=== PATIENT | female | born 1960 | race Caucasian/White ===

== ENCOUNTER 2017-01-25 14:15 | Emergency (ER) | payer MEDICARE, OTHER ==
[~2017-01-25] VITALS: Ht 160 cm; Wt 80.0 kg
[~2017-01-25 14:15] MED LIST: FES300 PO; FURO20TA PO; INSU100C4 SUBQ; INSU100I SUBQ; LAS20I IV; LISI40TA13 PO; METO-274 PO; METO25T PO; MICO130A6 TP; POTA20TA35 PO; Potassium
[2017-01-25 14:27] VITALS: BP 105/74; PULSE 72; RESP 16; O2SAT 97
[2017-01-25] MEDS ORDERED: FUR20 PO (14:34)
[2017-01-25] MEDS ORDERED: GABA-500 PO (14:34)
[2017-01-25] MEDS ORDERED: INSU100I13 SUBQ (14:34)
[2017-01-25] MEDS ORDERED: SPIR25TA3 PO (14:34)
--- NOTE | 2017-01-25 15:11 | ED.REPORT ---
HPI-Eye Problem Date of Service Jan 25, 2017 ED Provider: Shayan Matthew MD The patient is a 56 year old female with history of diabetic retinopathy and glaucoma, who presents to the emergency department complaining of right eye redness, pain, and swelling that began a few days ago. The patient fell off of the porch a few days ago, hitting her right knee and the right side of her face around her eye. She believes she hit her face on cement. She was not evaluated after the fall. Since the fall she has noticed right eye pain, redness, and vision loss. She states that she can see light but nothing else. The patient is legally blind in her left eye and her right eye vision was previously measured at 2400. She is normally able to see pretty well out her right eye and is able to read large letters. Nursing Notes Stated Complaint: R EYE BLOODY, BLURRY VISON Chief Complaint: Multiple Trauma/Fall Nursing Notes Reviewed: Yes Allergies: Coded Allergies: No Known Allergies (Unverified Allergy, Unknown, 01/25/17) Scheduled Ferrous Sulfate-Expunged Drug, Do Not Renew! (Feosol-Expunged Drug, Do Not Renew !) 325 Mg Tablet PO NEED SIG Furosemide (Furosemide) 20 Mg Tab 40 MG PO DAILY Gabapentin (Gabapentin) Unknown Strength Capsule Unknown Dose PO DAILY Insulin ASPART-Expunged Drug, Do Not Renew! (Novolog-Expunged Drug, Do Not Renew !) 3 Ml Syringe 5 UNIT SUBQ TID COVERAGE Insulin Glargine (Lantus U100 Solostar Insulin Pen) 100 Unit/1 Ml Insuln.pen 10 UNIT SUBQ HS Lisinopril-Expunged Drug, Do Not Renew! (Lisinopril-Expunged Drug, Do Not Renew! ) 40 Mg Tablet 40 MG PO DAILY Metoprolol Suc-Expunged Drug, Do Not Renew! (Metoprolol Suc-Expunged Drug, Do Not Renew!) 100 Mg Tab.er.24h 100 MG PO BID Spironolactone (Spironolactone) 25 Mg Tablet 25 MG PO BID General Time Seen by MD: 15:10 Chief Complaint Right eye affected Hx Obtained From: Patient, Daughter Arrived By: Walk-in Sudden in Onset?: No Onset Occurred: 3 days ago Symptom Duration: Since onset Progression Since Onset: Constant, Gradually worsening Caused by: Trauma (glf) Location: : Eye right Quality: Painful Severity: Current: Mild Severity: Maximum: Moderate Recent Healthcare: No recent doctor visit, No recent hospitalization Similar Sx Previous: No Past Medical History Past Medical History Diabetes mellitus Diabetic retinopathy Glaucoma Family History Noncontributory Social History Other Social History: Good social support, , Local resident Ambulatory Status Independent Review of Systems Eyes: Reports: Blurred right, Eye pain right, Redness right, Visual loss right Complete sys rev & neg: except as marked. Physical Exam Initial Vital Signs Vital Signs (First) Date Time Temp Pulse Resp B/P Pulse Ox O2 Delivery O2 Flow Rate FiO2 01/25/17 14:27 36.3 72 16 105/74 97 Room Air Initial VS: Reviewed Neck: Supple, Non-tender, Full range of motion Respiratory: Breath sounds normal, Clear to auscultation, No respiratory distress Cardiovascular: Regular rate & rhythm, Heart sounds normal, Intact distal pulses Abdomen / GI: Soft, Non-tender, No guarding, No rebound, No distention Lymphatic: No lymphadenopathy Extremities: Vascular intact, Neuro intact, No swelling, No tenderness Skin: Warm, Dry, No cyanosis Neurologic: Alert, Oriented, Nonfocal Psychiatric: Mood/affect normal, Behavior normal, Normal thought content Head / Eyes: Normocephalic Left eye: She has an enlarged irregularly shaped pupil and there is some obvious glaucomatous change present. Right eye: She has a large subconjunctival hemorrhage there is also some chronic corneal scarring with on area of fluoresceincuptake suggestive of possible corneal ulceration. Her right pupil is 4 mm and reactive to light. She is unable to read any letters on the Snellen chart with either eye. See slit lamp exam below for more detail. There is no trauma, ecchymosis, or palpable deformity to the scalp. General/Constitutional: Awake, Alert ENT: Atraumatic, Airway patent, No sinus tenderness Mouth: Positive: Mucous membranes dry No intraoral or dental injury. Back: No midline vertebral tend Procedures Slit Lamp Exam No corneal abrasions. No foreign bodies present. Cell and flare in the anterior chamber. Time: 15:55 Procedure Performed by: ED physician Which Eye: Right Eyelid / Conjunctiva / Sclera: Eyelid(s) normal Cornea/Ant Chamber/Iris/Lens: Corneal ulcer present Re-Eval/Medical Decision Med Decision/Clinical Course Patient is a 56-year-old female with extensive history of eye disease including diabetic retinopathy and glaucoma with complete blindness in her left eye and significant baseline vision loss in her right eye presenting to the emergency department with acute vision loss after a ground-level fall. Examination as above. Given the patient's acute vision loss in the setting of blindness in her left eye I feel that she requires further evaluation by an pin puller. Spoke with Dr. Walls who will come and see the patient in the emergency department. The patient has multiple eye problems however at this time per his evaluation there is no evidence of retinal tear/detachment. No evidence of hypopyon. Per our discussion it appears that most of the patient's vision loss is likely irreversible. After evaluating the patient he recommends discharge with antibiotic eye drops and followup with ophthalmology. He will arrange for follow-[place] with the [place] [facility] and she will receive a call tomorrow to assure that follow-up happens. At this time, I see no indication to obtain neuro imaging studies. Patient is nontoxic appearing and hemodynamically stable. Please see Dr. Walls's note extensive ophthalmologic evaluation conducted today in the emergency department. Prior to discharge I had a long conversation with the patient the importance of following up in eye clinic tomorrow as instructed. From what I can gather the patient has had very poor follow-up in the past and I discussed with her the importance of doing everything she can to maintain what vision she has left in her right eye. She is assures us she will do this. Source of Hx: Old records, Family Re-Evaluation/Progress : Time of Eval: 17:38 Re-Evaluation/Progress Note: Discussed plan for discharge. All questions were addressed. Consultation #1: Referral / Consult Name: VANNA WALLS MD Consulted With: Awning Erector Call Returned at: 16:23 General Lot Attendant: Will see patient, Agrees with eval, Agrees with plan Consultation #2: Consulted With: Awning Erector Call Returned at: 19:15 Note: [facility] after the patient was departed. They will contact her tonight to make sure she is seen tomorrow morning. Counseled Regarding: Diagnosis, Need for follow-up, When/why to return to ED Discharge & Departure Primary Impression: Right eye injury Encounter type: initial encounter Qualified Code: S05.91XA - Unspecified injury of right eye and orbit, initial encounter Additional Impressions: Corneal ulcer Laterality: right Qualified Code: H16.001 - Unspecified corneal ulcer, right eye Blindness of left eye History of glaucoma History of diabetic retinopathy Noncompliance with diabetes treatment Disposition: Home Discharge Condition All VS Reviewed: Yes Condition: Stable Additional Instructions: Thank you for seeking care at the emergency room. Our primary goal today in the ED was to evaluate you for any life-threatening conditions. Your evaluation was reassuring. You will be discharged with a prescription for antibiotic eye drops. Use the drops every hour while awake over the next few days and then decrease this to 4 times daily. It is very important that you followup with an pin puller in the next few days for re-evaluation. Call [facility] at [phone] tomorrow to schedule an appointment. If you cannot get followup please return to the emergency department. You should return to the ED immediately if you develop new or worsening visual changes, increased pain, fevers, vomiting, or any other concerning signs or symptoms. Thank you for letting us partake in your care today. Referrals: Luly Reyna MD (PCP) Scribe Attestation Portions of this note were transcribed by Deya Andrade. I, Dr. Matthew personally performed the history, physical exam and medical decision-making; I reviewed and confirmed the accuracy of the information in the transcribed note. Signed by: Jada Tirado, 01/25/2017 at 1916. copies to: Luly Reyna MD, Beck O MD Jan 25, 2017 15:11 Deya Andrade Jan 25, 2017 15:34
[2017-01-25] MEDS ORDERED: Tetracaine 0.5% 4 mL Ophthalmic Solution BOTH_EYES ONE (15:15)
[2017-01-25] MEDS ORDERED: Fluorescein 0.6 mg Ophthalmic Strip BOTH_EYES ONE (15:15)
[2017-01-25] MEDS ORDERED: Cyclopentolate 2% 2 mL Ophthalmic Solution RIGHT_EYE ONE (17:30)
[2017-01-25 18:33] VITALS: BP 98/74; PULSE 63; RESP 16; O2SAT 98
[2017-04-02] MEDS ORDERED: FERR-83 PO (16:14)
[2017-04-02] MEDS ORDERED: SODI650T PO (16:14)
[2017-04-02] MEDS ORDERED: METO-274 PO (16:14)
[2017-04-02] MEDS ORDERED: POTA99TA21 PO (16:14)
[2017-04-02] MEDS ORDERED: GABA300C PO (16:14)
[2017-04-02] MEDS ORDERED: CALC0.257 PO (16:14)
[2017-04-02] MEDS ORDERED: INSU100C8 SUBQ (16:14)
[2017-04-02] MEDS ORDERED: INSU100I (16:14)
== END 2017-01-25 18:34 | disposition home or self-care (01) ==
LOC: SED 14:15
DX: S05.91XA Unspecified injury of right eye and orbit, initial encounter (principal); H16.001 Unspecified corneal ulcer, right eye; H54.42 Blindness, left eye, normal vision right eye; H11.31 Conjunctival hemorrhage, right eye; W17.89XA Other fall from one level to another, initial encounter; Y93.89 Activity, other specified; Y99.8 Other external cause status; Y92.018 Other place in single-family (private) house as the place of occurrence of the external cause; E11.319 Type 2 diabetes mellitus with unspecified diabetic retinopathy without macular edema; Z86.69 Personal history of other diseases of the nervous system and sense organs; Z91.19 Patient's noncompliance with other medical treatment and regimen; Z79.4 Long term (current) use of insulin

== ENCOUNTER 2017-04-06 09:53 | Day surgery (SDC) | payer MEDICARE ==
[~2017-04-06] VITALS: Ht 160 cm; Wt 90.4 kg
[2017-04-06] VITALS (9 sets, daily range): BP systolic 149–190; BP diastolic 67–83; PULSE 66–77; RESP 14–17; O2SAT 94–98
[~2017-04-06 09:53] MED LIST changes: +0.9% Sodium Chloride 500 ML IV ONE; +CALC0.257 PO; +CeFAZolin Inj 1 GM in IV Premix 1 EACH IV ONE; +FERR-83 PO; -FES300 PO; +FUR20 PO; -FURO20TA PO; +GABA300C PO; -INSU100C4 SUBQ; +INSU100C8 SUBQ; +INSU100I; -INSU100I SUBQ; +INSU100I13 SUBQ; -LAS20I IV; -LISI40TA13 PO; -METO25T PO; -MICO130A6 TP; -POTA20TA35 PO; +POTA99TA21 PO; -Potassium; +SODI650T PO
[2017-04-06] MEDS ORDERED: Propofol 10,000 mCg/mL 20 mL Inj ONE (09:54)
[2017-04-06] MEDS ORDERED: Ketamine 10 mg/mL 20 mL Inj ONE (09:54)
[2017-04-06] MEDS ORDERED: Dexamethasone 4 mg/mL Inj ONE (09:54)
[2017-04-06] MEDS ORDERED: Ondansetron 2 mg/mL 2 mL Inj ONE (09:54)
[2017-04-06] MEDS ORDERED: fentaNYL-PF 50 mCg/mL 2 mL Inj ONE (09:54)
--- NOTE | 2017-04-06 10:21 | PCM.HPANE ---
Patient Data Surgeon Admitting Provider: Attending Provider:Jemima Cabrera MD Primary Care Physician:Luly Reyna MD Other Provider:Jacque Davisingham Anesthesia Reason for Visit Chronic Renal Failure Ht/WT & BMI Height (Feet): 5 Height (Inches): 3 Weight (Kilograms): 93.168 Body Mass Index 36.00 Allergies Coded Allergies: No Known Allergies (Verified Allergy, Unknown, 04/02/17) Past Anesthesia History Anesthesia History: Denies:: Anesthesia Reactions, Malignant Hyperthermia Diabetes History Hx Diabetes?: Yes Type of Diabetes: Type II Glycemic Control: Insulin Dependent MRSA MRSA: No Medications Hypertension Medication: Yes (LASIX) Home Meds Incl Beta Cody: Yes (METOPROLOL) Reported Medications Sodium Bicarbonate 650 Mg Ogchel925 Mg PO BID 04/02/17 Potassium Gluconate (Potassium)99 Mg Aqhhth08 Mg PO DIRECTED PRN HEALTH PLEASE VERIFY DOSAGE & FREQUENCY 04/02/17 Calcitriol (Rocaltrol)0.25 Mcg Capsule0.25 Mcg PO 04/02/17 Gabapentin (Neurontin)300 Mg Cwtbrll929 Mg PO DAILY 30 Days Ref 0 04/02/17 Ferrous Sulfate 325 Mg Wwgfpr721 Mg PO BID 30 Days Ref 0 04/02/17 Insulin Aspart (NovoLOG U100 Insulin Vial)100 U/Ml U1 Unit SUBQ TIDAC #1 VIAL Ref 0 sliding scale 04/02/17 Insulin Aspart (NovoLOG U-100 Pen)100 Unit/Ml Insuln.pen 04/02/17 Metoprolol Succinate ER 100 Mg Tab.er.68h780 Mg PO BID Ref 0 04/02/17 Insulin Glargine (Lantus U100 Solostar Insulin Pen)100 Unit/1 Ml Insuln.pen10 Unit SUBQ HS #1 PENINJ Ref 0 01/25/17 Furosemide 20 Mg Tab40 Mg PO DAILY 01/25/17 Discontinued Reported Medications Gabapentin Unknown Strength CapsuleUnknown Dose PO DAILY 01/25/17 Spironolactone 25 Mg Zmpwqs72 Mg PO BID 01/25/17 Metoprolol Suc-Expunged Drug, Do Not Renew! 100 Mg Tab.er.47f551 Mg PO BID 11/30/13 Ferrous Sulfate-Expunged Drug, Do Not Renew! (Feosol-Expunged Drug, Do Not Renew !)325 Mg Tablet Po Need Sig 11/30/13 Lisinopril-Expunged Drug, Do Not Renew! 40 Mg Ncxikp43 Mg PO DAILY Ref 0 11/30/13 Insulin ASPART-Expunged Drug, Do Not Renew! (Novolog-Expunged Drug, Do Not Renew !)3 Ml Syringe5 Unit SUBQ TID #300 UNIT COVERAGE 12/30/12 History History of ENT Problems?: Yes HEENT History: Positive for:: Cataracts (beginning HX MACULAR EDEMA S/ P EYE SURGERY) Glaucoma (LEGALLY BLIND/DIABETIC RETINOPATHY) Denies:: Dysphagia Sinus Problem Denture Type: None Teeth Condition: Within Normal Limits Hx of Heart Problems?: Yes Cardiovascular History: Positive for:: Congestive Heart Failure Edema (legs past 3 weeks) Hypertension Irregular Heartbeat (a flutter today in ER, back to ST) Denies:: Cardiac Surgery Chest Pain Heart Murmur Pacemaker Thrombophlebitis Hx of Respiratory Problem?: Yes Respiratory History: Positive for:: Dyspnea (ALVAREZ) Tuberculosis (tested positive when younger but r/o cxr-now not positive) Denies:: Asthma COPD Chest Surgery (HX LUNG NODULE 2012) Emphysema Hemoptysis Pneumonia Use of C-PAP Machine (SNORES) Hx Neurologic Problems?: Yes Neurological History: Positive for:: Parkinson's Disease Denies:: Alzheimer's Disease CVA Dementia Dizziness Headaches Seizures Other Neurological Pertinent: DIABETIC NEUROPATHY Hx of GI Problems?: No Hx of Problems?: Yes Genitourinary History: Positive for:: Kidney Stones (x 2, remote past) Urinary Tract Infection (HX OF) Female Hx: Denies:: Currently Endometriosis Pelvic Inflammatory Problems with Breasts? Skin History: Denies:: History Skin Disorders? Pressure Ulcers Hx Musculoskeletal Problems?: No Musculoskeletal History: Denies:: Back Injury Joint Replacement Musculoskeletal Trauma Hx of Psycho/Social Problems?: No Psycho Social History: Denies:: Anxiety Bipolar Disorder Hx Depression Suicide Attempt Hx Surgeries?: Yes (S/P EYE PROCEDURE) Hx Any Other Health Problems?: Yes Other History: Positive for:: Hospitalization (birthing) Denies:: Cancer Endocrine Disease Thyroid Disease History Blood Transfusions: Denies:: Blood Transfuse Reaction Blood Transfusions Hx Diabetes: Yes Hx Alcohol Use: Yes (RARE)Hx Substance Use: Yes (REMOTE HX OF COCAINE & METH) Smoking Status: Never Smoker Have You Smoked inLast 12 mo: No Stop/Bang S-Snoring: Do You Snore Loudly: Yes T-Tired: feel tired, fatigued: No O-Obsered: Observed not breath: No P-Blood Pressure: treated: Yes B- Body Mass Index > 35 kg/m2: Yes A- Age over 50: Yes N- Neck Large Circumference: No G- Gender Male: No PRITI Total Score: 4 PRITI Risk Assessment: High Risk, =/>3 Yes Risk Assessment Category Category 1A: Patient has history of documented sleep apnea, and HAS NOT received any narcotic, sedative or anesthesia administration during this stay. Category 1B: Patient has history of documented sleep apnea, and HAS received any narcotic , sedative or anesthesia administration during this stay Category 2: Patient has SUSPECTED Obstructive Sleep Apnea, and HAS received any narcotic , sedative or anesthesia administration during this stay. Category 3: Patient has SUSPECTED Obstructive Sleep Apnea and HAS NOT received narcotic, sedative or anesthesia administration during this stay. Category 4: Outpatient in Procedural Areas with known sleep apnea or who screen positive for High Risk via the STOP/BANG questionnaire. Exam Exam General Appearance: Alert, Oriented X3, Cooperative, No Acute Distress HEENT/AIRWAY: MP 2 Lungs: Clear to Auscultation, Normal Air Movement Heart: Exam Unremarkable, Regular Rate/Rhythm, No Murmurs/Rubs/Gallops Meds/Labs/Diagnostics Admission Meds Current Medications Sodium Chloride (Normal Saline) 500 ml @ 10 mls/hr Q24H ONCE IV Last administered on 04/06/17t 09:56; Start 04/06/17 at 05:00; Stop 04/07/17 at 04:59 Plan Impression Patient chart reviewed, patient interviewed and anesthestic plan with risks, benefits, and alternatives discussed, and informed consent obtained. NPO per Anesth. Guidelines: Yes ASA Physical Status: ASA3 Severe Disease Anesthetic Plan: GA Bene/Risks/Altern/Consents: Yes HP Complete Prior to Induction: Yes Davis Motley MD April 06, 2017 10:21
[2017-04-06] MEDS ORDERED: Bupivacaine-MPF 0.5% 30 mL Inj INFILTRATE ONE (13:30)
[2017-04-06] MEDS ORDERED: Lidocaine 1% 50 mL Inj INFILTRATE ONE (13:30)
[2017-04-06] MEDS ORDERED: Heparin 1,000 Unit/mL 10 mL Inj IRRIGATION ONE (13:31)
[2017-04-06] MEDS ORDERED: Lactated Ringer's 1,000 ML IV SCH (13:32)
[2017-04-06] MEDS ORDERED: Lactated Ringer's 500 ML IV PRN (13:32)
[2017-04-06] MEDS ORDERED: EPHEDrine Sulfate 50 mg/mL Inj IVPUSH PRN (13:35)
[2017-04-06] MEDS ORDERED: Ondansetron 2 mg/mL 2 mL Inj IVPUSH PRN (13:35)
[2017-04-06] MEDS ORDERED: Atropine 0.4 mg/mL Inj IVPUSH PRN (13:35)
[2017-04-06] MEDS ORDERED: Dexamethasone 4 mg/mL Inj IVPUSH PRN (13:35)
[2017-04-06] MEDS ORDERED: Phenylephrine 10,000 mCg/mL Inj IVPUSH PRN (13:35)
[2017-04-06] MEDS ORDERED: fentaNYL-PF 50 mCg/mL 2 mL Inj IVPUSH PRN (13:35)
[2017-04-06] MEDS ORDERED: HYDROmorphone 1 mg/mL Inj IVPUSH PRN (13:35)
[2017-04-06] MEDS ORDERED: MetoCLOpramide 5 mg/mL 2 mL Inj IVPUSH PRN (13:35)
[2017-04-06] MEDS ORDERED: 0.9% Sodium Chloride 500 ML IV ONE (16:11)
[2017-04-06] MEDS ORDERED: oxyCODONE-Acetamin 5-325 mg Tablet PO PRN (16:20)
--- NOTE | 2017-04-06 16:25 | PCM.ANEP1 ---
Post Anesthesia PACU Phase 1 Assessment Vital Signs Vital Signs Date Time Temp Pulse Resp B/P Pulse Ox O2 Delivery O2 Flow Rate FiO2 04/06/17 10:22 36.5 67 16 190/83 97 Room Air Anesthetic Administered: GA Level of Alertness: Awake, talking DACOSTA's with Equal Strength: Yes Pain: No Nausea or Vomiting: No CV Function & Hydration Stable: Yes Airway Device: Oralpharangeal Airway Oxygen Delivery: Simple Mask Lungs: Clear to Auscultation, Normal Air Movement Dermatome Level: Full Sensation PACU Phase 2 Assessment Complications: No Follow up Care: N/A Patient Instructions Provided: Yes Davis Motley MD April 06, 2017 16:25
--- NOTE | 2017-04-06 16:37 | OP ---
[address] [address] OPERATIVE REPORT PATIENT: SHERWIN WEBB : 1960 MR#: [id number] ADMIT: 04/06/2017 JOB ID: [id number] DATE OF SURGERY: 04/06/2017 PREOPERATIVE DIAGNOSIS(ES): Stage 4 chronic kidney disease. POSTOPERATIVE DIAGNOSIS(ES): Stage 4 chronic kidney disease. PROCEDURE PERFORMED: Right brachiocephalic arteriovenous fistula. SURGEON: Jemima Cabrera MD ASSISTANTS: Randall Linda MD; SIMIN Beltrán HISTORY OF PRESENT ILLNESS: This is a 56-year-old woman with progressively worsening chronic kidney disease. She was not yet on dialysis, and her manager pathology requested AV fistula placement prior to the need for dialysis. FINDINGS: The right wrist was explored in an attempt to create a Jeremy fistula, however, the vein was completely inadequate. Therefore, the operation proceeded proximally and a brachiocephalic fistula was successfully created. DESCRIPTION OF PROCEDURE: Patient was brought to the operating room and placed in supine position. Moderate anesthesia was initially induced; however, later in the procedure was converted to LMA. The operative field was prepped and draped in sterile fashion. Antibiotics were infused. A warming blanket and SCDs were placed. A preprocedural pause was performed to confirm the correct patient, procedure, site, and side. The patient had been consented to Jeremy fistula with the possibility of a more proximal fistula if Jeremy could not be accomplished. Therefore, a 3cm longitudinal incision was made just lateral to the radial artery. The artery was identified and the cephalic vein was identified and dissected, which was found to be inadequate for fistula creation. This was closed with three interrupted 3-0 Vicryl stitches and a running 4-0 Vicryl stitch. Dermabond was placed. Attention was turned to the antecubital fossa. A transverse incision was made overlying skin lines. The cephalic vein was identified and found to be large and patent. It was dissected free proximally and distally until there was a bifurcation noted on the distal end and the proximal dissection was sufficient such that it could be swung over to attach to the brachial artery. The brachial artery was then dissected and clamped proximally and distally. The two branches of the vein were then tied with 3-0 silk and at the branch point, the vein was opened to create a meza. The vein was flushed with heparinized saline. Vessel loops were used for control of the artery proximally and distally, and a small bulldog was also used proximally. A small posterior branch was clipped on the artery. An arteriotomy was made and at that point, the heparinized saline was flushed proximally and distally. A running anastomosis was then created using 6-0 Prolene. The meza had to be trimmed to fit the size of the arteriotomy. At the completion of the procedure, there was no leak in the anastomosis. There was an excellent thrill. The subcutaneous tissues were then closed with interrupted 3-0 Vicryl stitches and a running 4-0 Vicryl stitch was used for skin. Dermabond was placed. The patient was then awakened from general anesthesia and taken to the postoperative care unit in good condition. ESTIMATED BLOOD LOSS: 5 mL. SPECIMENS: None. COMPLICATIONS: None. MIKE
== END 2017-04-06 23:59 | disposition home or self-care (01) ==
LOC: SAS 09:53
PROVIDERS: ATTEND Surgery
DX: I13.0 Hypertensive heart and chronic kidney disease with heart failure and stage 1 through stage 4 chronic kidney disease, or unspecified chronic kidney disease (principal); N18.4 Chronic kidney disease, stage 4 (severe); I50.30 Unspecified diastolic (congestive) heart failure; E11.22 Type 2 diabetes mellitus with diabetic chronic kidney disease; E11.319 Type 2 diabetes mellitus with unspecified diabetic retinopathy without macular edema; G20 Parkinson's disease; H54.8 Legal blindness, as defined in USA; Z87.898 Personal history of other specified conditions; Z79.4 Long term (current) use of insulin
CPT/HCPCS: 36415; 36818; 84132; J0690; J1100; J1644; J2250; J2405; J3010; J7030; J7040